=== PATIENT | male | born 1975 | race Two or more races ===

== ENCOUNTER 2018-04-24 05:47 | Emergency (ER) | payer MEDICAID ==
[~2018-04-24] VITALS: Ht 193 cm; Wt 172.4 kg
[2018-04-24 06:04] VITALS: BP 130/85
== END 2018-04-24 06:09 | disposition left against medical advice (07) ==
LOC: ER 05:49
DX: R00.2 Palpitations (principal); Z53.21 Procedure and treatment not carried out due to patient leaving prior to being seen by health care provider
CPT/HCPCS: 93005

== ENCOUNTER 2018-06-09 16:10 | Emergency (ER) | payer MEDICAID ==
[~2018-06-09] VITALS: Ht 193 cm; Wt 172.4 kg
[2018-06-09 16:22] VITALS: BP 142/83
[2018-06-09] MEDS ORDERED: DEXAMETHASONE SOD PHOS 10MG/1ML VIAL INJ IM ONE (17:00)
== END 2018-06-09 17:20 | disposition home or self-care (01) ==
LOC: ER 16:14
DX: B35.4 Tinea corporis (principal); L23.9 Allergic contact dermatitis, unspecified cause; I10 Essential (primary) hypertension; I48.91 Unspecified atrial fibrillation
CPT/HCPCS: 96372; 99283; J1100

== ENCOUNTER 2018-11-03 22:42 | Emergency (ER) | payer MEDICAID ==
[~2018-11-03] VITALS: Ht 193 cm; Wt 154.2 kg
[2018-11-04 03:07] VITALS: BP 133/81
[2018-11-04] MEDS ORDERED: cefTRIAXone SOD 1,000 MG VL IM ONE (04:30)
== END 2018-11-04 05:15 | disposition home or self-care (01) ==
LOC: ER 22:42
DX: T81.31XA Disruption of external operation (surgical) wound, not elsewhere classified, initial encounter (principal); D35.02 Benign neoplasm of left adrenal gland; D35.01 Benign neoplasm of right adrenal gland; I48.91 Unspecified atrial fibrillation; I10 Essential (primary) hypertension; Z98.84 Bariatric surgery status; Y83.8 Other surgical procedures as the cause of abnormal reaction of the patient, or of later complication, without mention of misadventure at the time of the procedure; Y92.89 Other specified places as the place of occurrence of the external cause
CPT/HCPCS: 74176; 96372; 99284; J0696

== ENCOUNTER 2020-03-03 13:14 | Emergency (ER) | payer MEDICAID ==
[~2020-03-03] VITALS: Ht 193 cm; Wt 113.4 kg
[2020-03-03 13:45] VITALS: BP 139/71
== END 2020-03-03 15:11 | disposition home or self-care (01) ==
LOC: ER 13:14
DX: K11.20 Sialoadenitis, unspecified (principal); I10 Essential (primary) hypertension

== ENCOUNTER 2020-11-27 17:35 | Emergency (ER) | payer MEDICAID ==
[~2020-11-27] VITALS: Ht 193 cm; Wt 119.3 kg
[2020-11-27 18:09] LABS: Urine WBC None Seen /hpf (0 - 3)
[2020-11-27 18:47] LABS: Urine Bacteria NONE SEEN /hpf (None Seen); Urine Blood Negative /uL (Negative); Urine Mucus FEW (None Seen); Urine Specific Gravity 1.024 (1.001-1.035)
[2020-11-27 21:26] VITALS: BP 122/62
== END 2020-11-27 21:30 | disposition home or self-care (01) ==
LOC: ER 17:35
DX: N20.0 Calculus of kidney (principal); K59.00 Constipation, unspecified; I10 Essential (primary) hypertension; Z90.49 Acquired absence of other specified parts of digestive tract
CPT/HCPCS: 74176; 81001

== ENCOUNTER 2021-05-12 01:03 | Emergency (ER) | payer MEDICAID ==
[~2021-05-12] VITALS: Ht 193 cm; Wt 122.5 kg
[2021-05-12] MEDS ORDERED: KETOROLAC TROMETH 60MG/2ML VIAL IM ONE (03:00)
[2021-05-12 03:04] LABS: Basophils # (auto) 0 10 ^3/uL (0-0.2); Basophils % (auto) 0.3 % (0.0-2.0); Eosinophils # (auto) 0.1 10 ^3/uL (0-0.8); Eosinophils % (auto) 0.6 % (0.0-7.0); Hematocrit 47.4 % (41.0-53.0); Hemoglobin 16.5 g/dL (13.5-17.5); Lymphocytes # (auto) 1.2 10 ^3/uL (0.4-5.4); Lymphocytes % (auto) 14.4 % (10.0-50.0); Mean Corpuscular Hemoglobin 33.4 pg (28.0-32.0); Mean Corpuscular Hgb Conc. 34.8 g/dL (32.0-36.0); Monocytes # (auto) 0.5 10 ^3/uL (0-1.3); Monocytes % (auto) 5.9 % (0.0-12.0); Neutrophils # (auto) 6.6 10 ^3/uL (1.6-8.6); Neutrophils % (auto) 78.8 % (37.0-80.0); Nucleated Red Blood Cells % 0.2 %; Red Blood Cells 4.93 10^6/uL (4.5-5.90); Red Cell Distribution Width 12.9 % (11.8-14.3); White Blood Cell 8.3 10^3/uL (4.4-10.8)
[2021-05-12 03:10] LABS: Urine Bacteria NONE SEEN /hpf (None Seen); Urine Blood 3+ /uL (Negative); Urine Mucus FEW (None Seen); Urine Specific Gravity 1.028 (1.001-1.035); Urine WBC 1 /hpf (0 - 3)
[2021-05-12 03:21] LABS: Albumin 4.1 g/dL (3.4-5.0); BUN/Creatinine Ratio 20.5; Calcium 9.1 mg/dL (8.5-10.1); Magnesium 2.5 mg/dL (1.6-2.6); Potassium 3.6 mmol/L (3.5-5.1)
[2021-05-12 05:08] VITALS: BP 123/76
== END 2021-05-12 05:10 | disposition home or self-care (01) ==
LOC: ER 01:14
DX: N20.0 Calculus of kidney (principal); R11.2 Nausea with vomiting, unspecified; I48.91 Unspecified atrial fibrillation; I10 Essential (primary) hypertension; Z90.49 Acquired absence of other specified parts of digestive tract
CPT/HCPCS: 36415; 74176; 80053; 81001; 83605; 83735; 85025; 85610; 96372; 99284; J1885

== ENCOUNTER 2021-11-19 00:06 | Emergency (ER) | payer MEDICAID ==
[~2021-11-19] VITALS: Ht 193 cm; Wt 127.0 kg
[2021-11-19] MEDS ORDERED: ALUM & MAG HYDROX-SIMETH LIQ(MAALOX) 30 ML PO ONE (00:30)
[2021-11-19 01:19] LABS: Basophils # (auto) 0.1 10 ^3/uL (0-0.2); Basophils % (auto) 1.9 % (0.0-2.0); Eosinophils # (auto) 0.1 10 ^3/uL (0-0.8); Eosinophils % (auto) 1.8 % (0.0-7.0); Hemoglobin 15.1 g/dL (13.5-17.5); Lymphocytes # (auto) 1.2 10 ^3/uL (0.4-5.4); Lymphocytes % (auto) 21.7 % (10.0-50.0); Mean Corpuscular Hemoglobin 32.6 pg (28.0-32.0); Mean Corpuscular Hgb Conc. 34.4 g/dL (32.0-36.0); Mean Corpuscular Volume 94.8 fL (80.0-100.0); Monocytes # (auto) 0.4 10 ^3/uL (0-1.3); Monocytes % (auto) 6.9 % (0.0-12.0); Neutrophils # (auto) 3.8 10 ^3/uL (1.6-8.6); Neutrophils % (auto) 67.7 % (37.0-80.0); Nucleated Red Blood Cells % 0.2 %; Red Blood Cells 4.64 10^6/uL (4.5-5.90); Red Cell Distribution Width 12.9 % (11.8-14.3); White Blood Cell 5.6 10^3/uL (4.4-10.8)
[2021-11-19 01:34] LABS: Albumin 3.7 g/dL (3.4-5.0); BUN/Creatinine Ratio 21.4; Calcium 8.2 mg/dL (8.5-10.1); Potassium 4.3 mmol/L (3.5-5.1)
[2021-11-19 01:52] LABS: Bilirubin, Total 0.7 mg/dL (0.2-1.0); Total Protein 7.2 g/dL (6.4-8.2)
[2021-11-19 03:00] VITALS: BP 121/72
== END 2021-11-19 04:50 | disposition home or self-care (01) ==
LOC: ER 00:07
DX: R07.89 Other chest pain (principal); I10 Essential (primary) hypertension; Z90.49 Acquired absence of other specified parts of digestive tract; Z87.442 Personal history of urinary calculi
CPT/HCPCS: 36415; 71045; 80053; 83880; 84484; 85025; 93005

== ENCOUNTER 2022-02-15 12:28 | Emergency (ER) | payer MEDICAID ==
[~2022-02-15] VITALS: Ht 193 cm; Wt 127.5 kg
[2022-02-15] MEDS ORDERED: PANTOPRAZOLE 40 MG/10 ML VIAL INJ IV ONE (13:15)
[2022-02-15] MEDS ORDERED: MORPHINE SULFATE 4 MG/ML SYR/VIAL IV ONE (13:15)
[2022-02-15] MEDS ORDERED: ONDANSETRON HCL 4 MG/2 ML VIAL IV ONE (13:15)
[2022-02-15] MEDS ORDERED: SODIUM CHLORIDE 0.9% 500 ML IVB ONE (13:15)
[2022-02-15 14:09] LABS: Basophils # (auto) 0 10 ^3/uL (0-0.2); Basophils % (auto) 0.5 % (0.0-2.0); Eosinophils # (auto) 0.1 10 ^3/uL (0-0.8); Eosinophils % (auto) 1.3 % (0.0-7.0); Hematocrit 47.6 % (41.0-53.0); Hemoglobin 15.7 g/dL (13.5-17.5); Lymphocytes # (auto) 1.5 10 ^3/uL (0.4-5.4); Lymphocytes % (auto) 26.6 % (10.0-50.0); Mean Corpuscular Hemoglobin 31.5 pg (28.0-32.0); Mean Corpuscular Volume 95.2 fL (80.0-100.0); Monocytes # (auto) 0.4 10 ^3/uL (0-1.3); Monocytes % (auto) 7.8 % (0.0-12.0); Neutrophils # (auto) 3.5 10 ^3/uL (1.6-8.6); Neutrophils % (auto) 63.8 % (37.0-80.0); Nucleated Red Blood Cells % 0.1 %; Red Cell Distribution Width 13.1 % (11.8-14.3); White Blood Cell 5.5 10^3/uL (4.4-10.8)
[2022-02-15 14:17] LABS: Amylase 48 U/L (25-115); Lipase 120 U/L (73-393)
[2022-02-15 14:19] LABS: Albumin 4.2 g/dL (3.4-5.0); Calcium 8.9 mg/dL (8.5-10.1); Potassium 3.8 mmol/L (3.5-5.1)
[2022-02-15 14:22] LABS: BUN/Creatinine Ratio 17.3; Bilirubin, Total 1.9 mg/dL (0.2-1.0)
[2022-02-15 16:03] VITALS: BP 124/65
[2022-02-15] MEDS ORDERED: PANT40TA2 PO (16:16)
[2022-02-15] MEDS ORDERED: ONDA-144 PO (16:16)
== END 2022-02-15 16:41 | disposition home or self-care (01) ==
LOC: ER 12:28
DX: K29.00 Acute gastritis without bleeding (principal); F12.10 Cannabis abuse, uncomplicated; I48.91 Unspecified atrial fibrillation; I10 Essential (primary) hypertension; Z90.49 Acquired absence of other specified parts of digestive tract
CPT/HCPCS: 36415; 74176; 80053; 82150; 83690; 85025; 93005; 96361; 96374; 96375; 99285; C9113; J2405; J7040